=== PATIENT | female | born 1945 | race Caucasian/White ===

== ENCOUNTER 2017-11-08 07:41 | Emergency (ER) | payer MEDICARE, BC, SELFPAY ==
[2017-11-08 07:42] VITALS: BP 134/75; PULSE 62; RESP 20; TEMP 36.3; O2SAT 99; BMI 26.6
[2017-11-08 08:03] LABS: Microscopic, Urine URINE MICROSCOPIC (MICROSCOPIC)
[2017-11-08 08:04] LABS: Appearance,Urine CLEAR (Clear); Bilirubin,Urine Negative (Negative); Blood, Urine Negative (Negative); Color,Urine YELLOW (Yellow); Glucose,Urine (UA) Negative (Negative); Ketones,Urine TRACE (Negative); Leukocyte Esterase,Urine 1+ (Negative); Nitrate,Urine Negative (Negative); Protein,Urine Negative (Negative); Specific Gravity, Urine >= 1.030 (1.005-1.030); Urobilinogen,Urine 0.2 EU/dl (0.2)
--- NOTE | 2017-11-08 08:09 | XR_ITS ---
XR chest 2V HISTORY: Diabetes, altered mental status ITS.REASON: medical clearance ORDERING PHYSICIAN: Ramiro Singleton MD PATIENT AGE: 72 years COMPARISON: 10/21/2014 FINDINGS: The cardiomediastinal silhouette and pulmonary vascularity are within normal limits. The lungs are clear without infiltrates, suspicious nodules, or pleural effusions. No acute bony abnormalities. IMPRESSION: No change with no acute finding
--- NOTE | 2017-11-08 08:23 | HMH.EDGENADL ---
ED Disposition Clinical Impression: Dementia with psychosis Disposition: Xfer Psychiatric Hosp Condition on Discharge: Good Prescriptions: Ciprofloxacin HCl [Cipro 250mg Tab] 250 mg PO BID #14 tab Referrals: Simone Anaya MD [Primary Care Provider] - - Critical Care Critical Care Time: No Attestation: On 11/08/17, the high probability of a clinically significant, sudden or life threatening deterioration of the following system(s) required my full and direct attention, intervention and personal management. The time I documented below is in addition to time spent performing reported procedures but includes the following listed in this critical care notation. Medical Decision Making Vital Signs: 11/08/17 07:42 11/08/17 09:42 Temperature 97.4 F L Temperature Source Oral Pulse Rate [Right Brachial] 62 86 Respiratory Rate 20 18 Blood Pressure [Right Arm] 134/75 151/75 Blood Pressure Mean [Right Arm] 94 100 Blood Pressure Source [Right Arm] Automatic Cuff Automatic Cuff Blood Pressure Position [Right Arm] Sitting Sitting 02 Sat by Pulse Oximetry 99 98 Oxygen Delivery Method Room Air Room Air - Lab Data Lab Results 11/08/17 07:55: Urine Color Yellow, Urine Appearance Clear, Urine pH 5.0, Ur Specific [place] >= 1.030, Urine Protein Negative, Urine Glucose (UA) Negative, Urine Ketones Trace, Urine Blood Negative, Urine Nitrate Negative, Urine Bilirubin Negative, Urine Urobilinogen 0.2, Ur Leukocyte Esterase 1+ A, Urine RBC None, Urine WBC 5-10, Ur Squamous Epith Cells 5-10, Urine Bacteria 2+, Hyaline Casts Occasional, Urine Mucus 1+ 11/08/17 08:15: WBC 8.3, RBC 3.99 L, Hgb 11.7 L, Hct 36.4 L, MCV 91.1, MCH 29.4, MCHC 32.2, RDW 12.5, Plt Count 285, MPV 8.5, Neut % (Auto) 64.8, Lymph % (Auto) 27.0, [place] % (Auto) 4.8, Eos % (Auto) 2.8, Baso % (Auto) 0.5, Neut # (Auto) 5.4, Lymph # (Auto) 2.2, [place] # (Auto) 0.4, Eos # (Auto) 0.2, Baso # (Auto) 0.1 11/08/17 08:15: Sodium 136, Potassium 4.6, Chloride 100, Carbon Dioxide 27, Anion Gap 13.6, BUN 17, Creatinine 1.53 H, Estimated Creat Clear 38, Estimated GFR 34 L, Est GFR ( Amer) 41 L, Glucose 140 H, Calcium 9.4, Total Bilirubin 0.2, AST 14 L, ALT 18, Alkaline Phosphatase 95, Total Creatine Kinase 59, CK-MB (CK-2) < 0.5, CK-MB (CK-2) Rel Index 0.8, Troponin I < 0.02, Total Protein 8.3 H, Albumin 4.3, Globulin 4.0 H, Albumin/Globulin Ratio 1.1, Salicylates 1.2 L, Acetaminophen 0 L, Plasma/Serum Alcohol 0 Result diagrams: 11/08/17 08:15 11/08/17 08:15 Orders (Tests/Meds): ED MEDICATIONS Discontinued Medications Generic Name Dose Route Start Last Admin Trade Name Freq PRN Reason Stop Dose Admin Levofloxacin 250 mg 11/08/17 11:52 Levaquin 250mg Tab PO 11/08/17 11:53 ONCE ONE Protocol ORDERS Category Date Time Status Urine Culture Stat Micro 11/08/17 07:55 Received - Radiology Data #1 Image(s): Chest Image Reviewed: Yes I reviewed the patient's radiology results Preliminary Findings: Normal/NAD - ECG Data Tracing #1 EKG interpreted by Ramiro Singleton MD: Rhythm: sinus bradycardia Rate: 56 [place]: normal Ectopy: none Conduction: normal ST Segment Changes: none T Wave Changes: none Q Waves: none No evidence of acute ischemia or injury Low voltage QRS - Connor Inquiry Pt receiving controlled substance: No Medical Decision Making Narrative: Equivocal urine. Patient has urinary frequency in the ED. Will treat for UTI pending cultures. General Adult HPI - General Chief complaint: Altered Mental Status Stated complaint: AMS Mode of Arrival: Ambulatory Limitations: No Limitations Description of Symptoms (Recalled from ER Triage Doc. by RN): Per pt daughter pt has alzheimer's, pt has been more confused and getting violent in the past week. Pt family states they have contacted [facility] and were told that pt would need medical clearance prior to admission to their facility. - History of Present Il
--- NOTE | 2017-11-08 08:26 | ED_ITS ---
ED Disposition Clinical Impression: Dementia with psychosis Disposition: Xfer Psychiatric Hosp Condition on Discharge: Good Prescriptions: Ciprofloxacin HCl [Cipro 250mg Tab] 250 mg PO BID #14 tab Referrals: Simone Anaya MD [Primary Care Provider] - - Critical Care Critical Care Time: No Attestation: On 11/08/17, the high probability of a clinically significant, sudden or life threatening deterioration of the following system(s) required my full and direct attention, intervention and personal management. The time I documented below is in addition to time spent performing reported procedures but includes the following listed in this critical care notation. Medical Decision Making Vital Signs: 11/08/17 07:42 11/08/17 09:42 Temperature 97.4 F L Temperature Source Oral Pulse Rate [Right Brachial] 62 86 Respiratory Rate 20 18 Blood Pressure [Right Arm] 134/75 151/75 Blood Pressure Mean [Right Arm] 94 100 Blood Pressure Source [Right Arm] Automatic Cuff Automatic Cuff Blood Pressure Position [Right Arm] Sitting Sitting 02 Sat by Pulse Oximetry 99 98 Oxygen Delivery Method Room Air Room Air - Lab Data Lab Results 11/08/17 07:55: Urine Color Yellow, Urine Appearance Clear, Urine pH 5.0, Ur Specific [place] >= 1.030, Urine Protein Negative, Urine Glucose (UA) Negative, Urine Ketones Trace, Urine Blood Negative, Urine Nitrate Negative, Urine Bilirubin Negative, Urine Urobilinogen 0.2, Ur Leukocyte Esterase 1+ A, Urine RBC None, Urine WBC 5-10, Ur Squamous Epith Cells 5-10, Urine Bacteria 2+, Hyaline Casts Occasional, Urine Mucus 1+ 11/08/17 08:15: WBC 8.3, RBC 3.99 L, Hgb 11.7 L, Hct 36.4 L, MCV 91.1, MCH 29.4 , MCHC 32.2, RDW 12.5, Plt Count 285, MPV 8.5, Neut % (Auto) 64.8, Lymph % (Auto ) 27.0, [place] % (Auto) 4.8, Eos % (Auto) 2.8, Baso % (Auto) 0.5, Neut # (Auto) 5.4, Lymph # (Auto) 2.2, [place] # (Auto) 0.4, Eos # (Auto) 0.2, Baso # (Auto) 0.1 11/08/17 08:15: Sodium 136, Potassium 4.6, Chloride 100, Carbon Dioxide 27, Anion Gap 13.6, BUN 17, Creatinine 1.53 H, Estimated Creat Clear 38, Estimated GFR 34 L, Est GFR ( Amer) 41 L, Glucose 140 H, Calcium 9.4, Total Bilirubin 0.2, AST 14 L, ALT 18, Alkaline Phosphatase 95, Total Creatine Kinase 59, CK-MB (CK-2) < 0.5, CK-MB (CK-2) Rel Index 0.8, Troponin I < 0.02, Total Protein 8.3 H, Albumin 4.3, Globulin 4.0 H, Albumin/Globulin Ratio 1.1, Salicylates 1.2 L, Acetaminophen 0 L, Plasma/Serum Alcohol 0 Result diagrams: 11/08/17 08:15 11/08/17 08:15 Orders (Tests/Meds): ED MEDICATIONS Discontinued Medications Generic Name Dose Route Start Last Admin Trade Name Freq PRN Reason Stop Dose Admin Levofloxacin 250 mg 11/08/17 11:52 Levaquin 250mg Tab PO 11/08/17 11:53 ONCE ONE Protocol ORDERS Category Date Time Status Urine Culture Stat Micro 11/08/17 07:55 Received - Radiology Data #1 Image(s): Chest Image Reviewed: Yes I reviewed the patient's radiology results Preliminary Findings: Normal/NAD - ECG Data Tracing #1 EKG interpreted by Ramiro Singleton MD: Rhythm: sinus bradycardia Rate: 56 [place]: normal Ectopy: none Conduction: normal ST Segment Changes: none T Wave Changes: none Q Waves: none No evidence of acute ischemia or injury Low voltage QRS - Connor Inquiry Pt receiving controlled substan
[2017-11-08 08:28] LABS: Bacteria,Urine 2+ /lpf; Mucus,Urine 1+ /lpf
[2017-11-08 08:30] LABS: Hyaline Casts,Urine Occasional #/lpf (0)
[2017-11-08 08:41] LABS: Basophils # 0.1 K/mm3 (0-0.2); Basophils % 0.5 % (0.1-2.0); Eosinophils # 0.2 K/mm3 (0.0-0.4); Eosinophils % 2.8 % (0.1-12.0); Hematocrit 36.4 % (37.0-47.0); Hemoglobin 11.7 g/dL (12.2-16.2); Lymphocytes # 2.2 K/mm3 (0.7-4.5); Mean Corpuscular HGB Conc 32.2 g/dL (31.8-35.4); Mean Corpuscular Hemoglobin 29.4 pg (27.0-31.2); Mean Corpuscular Volume 91.1 fl (81-99); Mean Platelet Volume 8.5 fl (7.4-10.4); Monocytes # 0.4 K/mm3 (0.1-1.0); Monocytes % 4.8 % (1.7-9.3); Neutrophils # 5.4 K/mm3 (1.8-7.8); Neutrophils % 64.8 % (37.0-80.0); Platelet Count 285 K/mm3 (142-424); Red Blood Count 3.99 M/mm3 (4.20-5.40); Red Cell Distribution Width 12.5 % (11.5-17.5); White Blood Count 8.3 K/mm3 (4.8-10.8)
[2017-11-08 08:55] LABS: Alanine Aminotransferase 18 U/L (12-78); Albumin Level 4.3 gm/dL (3.4-5.0); Albumin/Globulin Ratio 1.1 (1.1-1.8); Alkaline Phosphatase 95 U/L (46-116); Anion Gap 13.6 mEq/L (5-15); Aspartate Amino Transferase 14 U/L (15-37); Bilirubin,Total 0.2 mg/dL (0.2-1.0); Blood Urea Nitrogen 17 mg/dL (7-18); CKMB Relative Index 0.8 U/L (0-4.0); Calcium 9.4 mg/dL (8.5-10.1); Carbon Dioxide 27 mmol/L (21.0-32.0); Chloride 100 mmol/L (98-107); Creatine Kinase 59 U/L (26-192); Creatine Kinase MB < 0.5 mg/ml (0.0-3.6); Creatinine Clearance Estimated 38 mL/min (0-300); Creatinine,Serum 1.53 mg/dL (0.55-1.02); Estimated Glomerular Filt Rate 34 ml/min (>60); Ethyl Alcohol 0 mg/dL (0-99); GFR (African American) 41 ML/MIN (>60); Glucose 140 mg/dL (74-106); Potassium 4.6 mmoL/L (3.5-5.1); Salicylate 1.2 mg/dL (2.8-20.0); Sodium 136 mmol/L (136-145); Total Protein,Serum 8.3 gm/dL (6.4-8.2); Troponin I < 0.02 ng/ml (0.00-0.06)
[2017-11-08 08:56] LABS: Acetaminophen 0 ug/mL (10-30)
[2017-11-08 09:42] VITALS: BP 151/75; PULSE 86; RESP 18; O2SAT 98
--- NOTE | 2017-11-08 09:45 | PC.NURSE ---
Contacted [facility] medical staff coordinator for mobile assessments, Krista. Gave information on pt, states she spoke with coal handling supervisor who did not think pt was suitable for zoom assessment r/t mental status. Asked for records to be faxed on pt, states would have nursing coal handling supervisor review paperwork and contact us back.
--- NOTE | 2017-11-08 11:35 | PC.NURSE ---
Contacted [facility] at this time to check on status of review of pt paperwork that was faxed over. Spoke with intake staff stated pt paperwork is being reviewing by supervising nurse and they would contact us back after paperwork is reviewed.
--- NOTE | 2017-11-08 12:28 | PC.NURSE ---
1228: Spoke with Clark from [facility], stated pt is accepted to their facility. 1232: Pt daughter Vania, pt [employer], is speaking with staff at [facility] to give consent for transfer of pt. [facility] staff needed a copy of pt insurance card faxed to them, stated they will run pt insurance and make sure pt can be accepted to their facility with her insurance and contact us back. Stated not to send pt until they contact us back.
[2017-11-08 13:25] VITALS: BP 162/89; PULSE 64; RESP 18; O2SAT 98
--- NOTE | 2017-11-08 14:20 | PC.NURSE ---
contacted [facility] to check on status of paperwork and transfer of pt. Spoke with intake staff who stated they did not receive insurance card and needed a face sheet. Registration staff refaxing paperwork at this time.
--- NOTE | 2017-11-08 14:33 | PC.NURSE ---
spoke with intake staff at this time who stated have received pt paperwork, pt is accepted to their facility per Dr. Loving.
--- NOTE | 2017-11-08 14:46 | PC.NURSE ---
Report called ASHLEY Garrido at [facility]
[2017-11-08 14:48] VITALS: BP 168/82; PULSE 64; RESP 18; TEMP 36.6; O2SAT 97
== END 2017-11-08 14:48 ==
PROVIDERS: Emergency Provider Emergency Medicine; Family Provider Family Medicine; PCP Family Medicine
DX: F23 Brief psychotic disorder (principal); G30.9 Alzheimer's disease, unspecified; E11.9 Type 2 diabetes mellitus without complications; Z79.84 Long term (current) use of oral hypoglycemic drugs
CPT/HCPCS: 71046; 80053; 80329; 81001; 82550; 82553; 84484; 85025; 87086; 93005; 99284

== ENCOUNTER → 2017-12-11 15:08 | Outpatient (REF) | payer MEDICARE, BC, SELFPAY | LOC: LAB 15:08 | PROVIDERS: Visit Provider Family Medicine | DX: R30.0 Dysuria (principal) | CPT/HCPCS: 87086; 87088; 87186 ==